=== PATIENT | female | born 1965 | race Caucasian/White ===

== ENCOUNTER 2017-09-13 16:23 | Emergency (ER) | payer MEDICAID, OTHER ==
[2017-09-13] MEDS ORDERED: Amoxicillin/Clavulanate K 875-125 MG Tab PO ONE (17:04)
[2017-09-13] MEDS ORDERED: traMADol 50 MG Tab PO ONE (17:04)
--- NOTE | 2017-09-13 17:10 | EDM.PDOC ---
ED HPI GENERAL MEDICAL PROBLEM - General Stated Complaint: TOOTHACHE Time Seen by Provider: 09/13/17 16:23 Source of Information: Reports: Patient History Limitations: Reports: No Limitations - History of Present Illness INITIAL COMMENTS - FREE TEXT/NARRATIVE: 51 y.o.f. - smoker- cam to the ed due to toothache and facial swelling for 1 week. No direct trauma. No F/C/N/V/D or any other acute medical issues. Pt took Tylenol and advil with little help. BP 151/82 Temp 97.4 Pulse ox 98% on RA Pulse 92 Onset Date: 09/05/17 Onset Time: 09:00 Duration: Day(s):, Getting Worse Location: Reports: Face Quality: Reports: Ache, Burning, Dull, Pressure Severity: Moderate Improves with: Reports: Rest Worsens with: Reports: Movement Context: Reports: Other (poor dentition) - Related Data Allergies Allergy/AdvReac Type Severity Reaction Status Date / Time No Known Allergies Allergy Verified 02/24/13 23:17 Home Meds: Home Meds ALPRAZolam [Xanax] 0.5 mg PO BID 02/22/13 [History] Ibuprofen [Motrin] 800 mg PO 02/22/13 [History] Venlafaxine [Effexor XR] 02/22/13 [History] hydrOXYzine HCl [hydrOXYzine] TID PRN 02/22/13 [History] Amoxicillin/Potassium Clav [Augmentin 875-125 Tablet] 1 each PO BID #20 tablet 09/13/17 [Rx] traMADol HCl [Ultram] 50 mg PO Q8HR PRN #14 tablet 09/13/17 [Rx] Social & Family History - Tobacco Use Years of Tobacco use: 8 - Alcohol Use Days Per Week of Alcohol Use: 0 - Recreational Drug Use Recreational Drug Use: No ED ROS ENT - Review of Systems Review Of Systems: See Below Constitutional: Reports: No Symptoms HEENT: Reports: Dental Pain Cardiovascular: Reports: No Symptoms Endocrine: Reports: No Symptoms GI/Abdominal: Reports: No Symptoms : Reports: No Symptoms Musculoskeletal: Reports: No Symptoms Skin: Reports: No Symptoms Neurological: Reports: No Symptoms Psychiatric: Reports: No Symptoms Hematologic/Lymphatic: Reports: No Symptoms Immunologic: Reports: No Symptoms ED EXAM, ENT - Physical Exam Exam: See Below Exam Limited By: No Limitations General Appearance: Alert, WD/WN, Mild Distress Eye Exam: Bilateral Eye: Normal Inspection Ears: Normal External Exam, Normal Canal Nose: Normal Inspection, Normal Mucousa Mouth/Throat: Dental Pain, Dental Tenderness, Dental Trauma Head: Atraumatic, Normocephalic, Facial Swelling (right face) Neck: Normal Inspection, Supple, Non-Tender, Full Range of Motion Respiratory/Chest: No Respiratory Distress, Lungs Clear, Normal Breath Sounds Cardiovascular: Normal Peripheral Pulses, Regular Rate, Rhythm, No Edema, No Gallop GI/Abdominal: Normal Bowel Sounds, Soft, Non-Tender, No Organomegaly, No Distention, No Abnormal Bruit (Female) Exam: Deferred Rectal (Female) Exam: Deferred Back: Normal Inspection, Full Range of Motion Extremities: Normal Inspection, Normal Range of Motion, Non-Tender, No Pedal Edema Neurological: Alert, Oriented, CN II-XII Intact, Normal Cognition, Normal Gait, No Motor/Sensory Deficits Course - Vital Signs Text/Narrative:: 51 y.o.f. - smoker- cam to the ed due to toothache and facial swelling for 1 week. No direct trauma. No F/C/N/V/D or any other acute medical issues. Pt took Tylenol and advil with little help. BP 151/82 Temp 97.4 Pulse ox 98% on RA Pulse 92 PE: WNWD F WITH TOOTHache and facial swelling Impression: Gingivitis, Poss tooth abscess #7 poor dentition Tx: Augmentin, Ultram Reexam: Improved Plan: D/C with instructions - Orders/Labs/Meds Meds: Medications Discontinued Medications Generic Name Dose Route Start Last Admin Trade Name Gilq PRN Reason Stop Dose Admin Amoxicillin/Clavulanate Potassium 1 tab 09/13/17 17:04 09/13/17 17:14 Augmentin 875 Mg/125 Mg PO 09/13/17 17:05 1 tab ONETIME ONE Administration Tramadol HCl 100 mg 09/13/17 17:04 09/13/17 17:20 Ultram PO 09/13/17 17:05 Not Given ONETIME ONE Departure - Departure Time of Disposition: 17:05 Disposition: Home, Self-Care 01 Condition: Good Clinical Impression: Toothache, Gingivitis - Discharge Information Prescriptions: traMADol HCl [Ultram] 50 mg PO Q8HR PRN #14 tablet PRN Reason: severe pain Amoxicillin/Potassium Clav [Augmentin 875-125 Tablet] 1 each PO BID #20 tablet Instructions: Tramadol tablets, Dental Abscess Referrals: Anup Alcantar MD [Primary Care Provider] - Additional Instructions: Please see a dentist as soon as possible, you may have a tooth abscess. Please take the meds as recommended, please come back to the ED if your symptoms get worse acutely.
[2017-09-13 19:59] VITALS: BP 151/82
== END 2017-09-13 17:20 | disposition home or self-care (01) ==
LOC: FB.ED 16:23
DX: K05.10 Chronic gingivitis, plaque induced (principal); Z79.899 Other long term (current) drug therapy
CPT/HCPCS: 99282; A9270

== ENCOUNTER 2023-01-02 07:25 | Day surgery (SDC) | payer MEDICAID, OTHER ==
[2023-01-02] MEDS ORDERED: Glycopyrrolate 0.2 MG/ML 5 ML MDV IV ONE (07:26)
[2023-01-02] MEDS ORDERED: Phenylephrine 0.5% Nasal Spray 15 ML Bot NAS ONE (07:26)
[2023-01-02] MEDS ORDERED: Lidocaine 2% 5 ML SDV IV ONE (07:26)
[2023-01-02] MEDS ORDERED: Midazolam 1 MG/ML 2 ML SDV IV ONE (07:26)
[2023-01-02] MEDS ORDERED: Propofol 200 MG/20 ML SDV IV ONE (07:26)
[2023-01-02] MEDS ORDERED: Sodium Chloride 0.9% 10 ML Syringe FLUSH PRN (07:30)
[2023-01-02] MEDS ORDERED: Lactated Ringers 1,000 ML IV SCH (07:30)
[2023-01-02] MEDS ORDERED: Simethicone Drops 40 MG/0.6 ML 30 ML Bottle ONE (09:07)
[2023-01-02 11:30] VITALS: BP 133/83; PULSE 84
== END 2023-01-02 11:10 | disposition home or self-care (01) ==
LOC: FB.SDS 07:25
PROVIDERS: ATTEND Surgery
DX: D12.0 Benign neoplasm of cecum (principal); D12.6 Benign neoplasm of colon, unspecified; K62.1 Rectal polyp; K58.9 Irritable bowel syndrome, unspecified; F41.9 Anxiety disorder, unspecified; F32.A Depression, unspecified; E11.9 Type 2 diabetes mellitus without complications; K21.9 Gastro-esophageal reflux disease without esophagitis; F43.10 Post-traumatic stress disorder, unspecified; E66.01 Morbid (severe) obesity due to excess calories; F17.210 Nicotine dependence, cigarettes, uncomplicated; Z79.899 Other long term (current) drug therapy; Z79.84 Long term (current) use of oral hypoglycemic drugs; Z88.2 Allergy status to sulfonamides; Z68.42 Body mass index [BMI] 45.0-49.9, adult
CPT/HCPCS: 00812; 45385; 82947; 88305; A9270; J2250; J2704; J3490; J7120